=== PATIENT | male | born 1945 | race Caucasian/White ===

== ENCOUNTER → 2016-09-15 | Outpatient (CLI) | payer OTHER, MEDICARE | LOC: BMCIMAGING 15:06 | PROVIDERS: ATTEND Internal Medicine | DX: R91.8 Other nonspecific abnormal finding of lung field (principal); R09.89 Other specified symptoms and signs involving the circulatory and respiratory systems ==

== ENCOUNTER → 2016-10-10 | Outpatient (CLI) | payer OTHER, MEDICARE | LOC: BMCIMAGING 13:53 | PROVIDERS: ATTEND Internal Medicine | DX: R05 Cough (principal) ==

== ENCOUNTER → 2018-03-14 | Outpatient (CLI) | payer OTHER, MEDICARE | LOC: BHFA 09:00 | PROVIDERS: ATTEND Internal Medicine Cardiovascular Disease | DX: R07.9 Chest pain, unspecified (principal); R06.02 Shortness of breath ==

== ENCOUNTER 2018-04-04 07:30 | Day surgery (SDC) | payer OTHER, MEDICARE ==
[2018-04-04] MEDS ORDERED: FAMOTIDINE 20 MG TAB PO ONE (07:31)
[2018-04-04] MEDS ORDERED: NS 1,000 ML IV ONE (07:31)
[2018-04-04] MEDS ORDERED: DIAZEPAM 5 MG TAB PO ONE (07:31)
[2018-04-04] MEDS ORDERED: ASPIRIN EC 325 MG TAB PO ONE ×2 (07:31→07:44)
[2018-04-04] MEDS ORDERED: diphenhydrAMINE 25 MG CAP PO ONE ×2 (07:31→07:44)
[2018-04-04] MEDS ORDERED: FAMOTIDINE 20 MG TAB ONE (07:44)
[2018-04-04] MEDS ORDERED: DIAZEPAM 5 MG TAB ONE (07:45)
[2018-04-04] MEDS ORDERED: IOPAMIDOL (ISOVUE-370) 150 ML BTL IV ONE (07:59)
[2018-04-04] MEDS ORDERED: fentaNYL 100 MCG/2 ML INJ ONE (07:59)
[2018-04-04] MEDS ORDERED: MIDAZOLAM 2 MG/2 ML VIAL ONE (07:59)
[2018-04-04] MEDS ORDERED: LIDOCAINE 1% 300 MG/30 ML SDV ONE (07:59)
[2018-04-04 08:08] LABS: PLATELET COUNT 284 10^3/uL (150-400)
--- NOTE | 2018-04-04 09:06 | PDPROPOC ---
Sedation Plan of Care Sedation Plan of Care: vital signs stable, mental status noted, patient educated of risks, benefits, alternatives, patient can tolerate sedation ASA Classification: ASA 2 Planned drugs: fentanyl, midazolam Mallampati Score: Class 2 Mallampati Reference Image: Patient passed 3-3-2 rule?: Yes
--- NOTE | 2018-04-04 09:11 | PDGENHP ---
History and Physical History and Physical: Patient is a 72 y/o male with history of HTN, HLP, and CAD (by angiography in the past), with recent follow up with cardiology (Dr. Benigno Montes) after atypical chest discomfort was noted. Recommendations for patient to have ETT, which he had, but just after testing, the patient headed to [place]. After return from [place], angiography was arranged (today). At present, the patient has no active cardiovascular complaints. was present with the patient today. No symptoms were noted while on Holiday in [place]. Physical examination was unremarkable GEN: awake and alert No JVD Lungs: CTA COR: RRR without m/r/g, normal S1S2 Abd: soft EXT: no edema Labs were reviewed ECG without dynamic changes noted Assessment: 72 y/o male with known CAD by angiography about 10 years ago. Atypical symptoms were noted over one month ago, and ETT was performed. ETT with ST changes noted, and recommendations for patient to proceed with angiography. Plan: (1) left heart cath (2) further recommendations after diagnostic procedure completed.
--- NOTE | 2018-04-04 10:27 | PDDXCAT ---
Diagnostic Cath Note - . Date: 04/04/18 [employer] Clerk: Serina High-risk criteria on non-invasive testing: high-risk treadmill score (score<=- 11) - Procedure Access: right groin Procedure: left heart catheterization, coronary angiography, left ventriculogram - Materials Left Heart Cath size: 6F Left Heart Cath materials: standard multipack (JL4, JR4, pigtail), JL5.0 - Findings-Left Heart Catheterization LM: Medium diameter vessel with trifurcation into the LAD, Ramus, and LCX. No luminal irregularities were noted. LAD: Medium diameter vessel with ostial and proximal disease noted (moderate, up to 50%). There is calcification to the ostial/proximal LAD noted. A principal diagonal had ostial disease of 60-80%. Mid LAD with mid vessel luminal irregularities noted. LCX: Small to medium diameter vessel with ostial/proximal stenosis (40%) and a smallish OM1. No distal luminal irregularities were noted. RCA: Dominant vessel with supply to the PDA/JARROD. Diffuse disease noted throughout, but none critical. Up to 30-40% stenosis noted. Ramus: Medium diameter vessel with mid vessel branch (of equal magnitude) . No appreciable luminal irregularities were noted. EDP: 23 mm Hg LVEF: 55-60% Wall motion: Grossly normal wall motion Complications: none Estimated blood loss: <50ml Closure method: Angioseal Assessment: 72 y/o male with HTN, HLP, and CAD (noted from prior angiography about 10 years ago), with continued "moderate" CAD to LAD, LCX, and RCA. Normal systolic function was noted. No clear progression of previously noted CAD. Plan: Continue with aggressive risk factor modification. Would arrange for follow up with cardiology (Dr. Benigno Montes) in 1-2 weeks Intervention: none
[2018-04-04] MEDS ORDERED: OXYCODONE/APAP 5/325 TAB PO PRN (12:31)
[2018-04-04] MEDS ORDERED: ATROPINE SULFATE 1 MG/10 ML SYR IVP PRN (12:31)
[2018-04-04] MEDS ORDERED: HYDROCODONE/APAP 5/325 TAB PO PRN (12:31)
[2018-04-04] MEDS ORDERED: ONDANSETRON 4 MG/2 ML VIAL IVP PRN (12:31)
[2018-04-04] MEDS ORDERED: NITROGLYCERIN 0.4 MG BTL SL PRN (12:31)
[2018-04-04 14:42] LABS: INR 1.04 (0.83-1.16); PROTIME(PATIENT) 13.8 SEC (12.0-15.0)
--- NOTE | 2018-04-04 15:50 | CPEKG ---
Test Reason : OPEN Blood Pressure : / mmHG Vent. Rate : 053 BPM Atrial Rate : 053 BPM P-R Int : 161 ms QRS Dur : 089 ms QT Int : 435 ms P-R-T Axes : -19 001 024 degrees QTc Int : 409 ms Sinus rhythm Abnormal R-wave progression, early transition Confirmed by Casimiro Smalls ([id number] on 04/04/2018 3:49:45 PM Referred By: Confirmed By:Casimiro Smalls
== END 2018-04-04 13:12 | disposition home or self-care (01) ==
LOC: FCATH 07:30
PROVIDERS: ATTEND Internal Medicine Cardiovascular Disease
PROC: 4A023N7 Measurement of Cardiac Sampling and Pressure, Left Heart, Percutaneous Approach (ICD-10-PCS; principal; 2018-04-04)
PROC: B2151ZZ Fluoroscopy of Left Heart using Low Osmolar Contrast (ICD-10-PCS; principal; 2018-04-04)
PROC: B2111ZZ Fluoroscopy of Multiple Coronary Arteries using Low Osmolar Contrast (ICD-10-PCS; principal; 2018-04-04)
DX: I25.10 Atherosclerotic heart disease of native coronary artery without angina pectoris (principal); R94.39 Abnormal result of other cardiovascular function study; R07.89 Other chest pain; E78.5 Hyperlipidemia, unspecified; I71.2 Thoracic aortic aneurysm, without rupture; G47.33 Obstructive sleep apnea (adult) (pediatric); I10 Essential (primary) hypertension; I36.1 Nonrheumatic tricuspid (valve) insufficiency; Z79.82 Long term (current) use of aspirin; Z82.49 Family history of ischemic heart disease and other diseases of the circulatory system
CPT/HCPCS: C1760; J1644; J2250; J3010; Q9967

== ENCOUNTER → 2018-06-18 | Outpatient (CLI) | payer OTHER, MEDICARE | LOC: BHFA 10:45 | PROVIDERS: ATTEND Internal Medicine Cardiovascular Disease | DX: I77.810 Thoracic aortic ectasia (principal) ==